=== PATIENT | male | born 1955 ===

== ENCOUNTER 2017-10-09 07:00 | Day surgery (SDC) | payer OTHER ==
[~2017-10-09] VITALS: Ht 180.3 cm; Wt 90.7 kg
[~2017-10-09 07:00] MED LIST: AVAPRO300 MG PO; GLIMEPIRIDE2 MG PO; METFORMIN HCL500 MG PO
== END 2017-10-09 15:38 | disposition home or self-care (01) ==
LOC: CIR.AMB 07:00 → O/R 07:15 → EDSTATUS 07:15 → O/R 09:15 → CIR.AMB 15:38
DX: K80.10 Calculus of gallbladder with chronic cholecystitis without obstruction (principal)